=== PATIENT | male | born 1965 | race Caucasian/White ===

== ENCOUNTER 2018-09-01 14:16 | Emergency (ER) | payer SELFPAY ==
[2018-09-01] MEDS ORDERED: CLINDAMYCIN 600 MG/D5W RTU 600 MG/50 ML RTUPB IV ONE (17:26)
--- NOTE | 2018-09-01 17:29 | ER Document Report ---
ED Medical Screen (RME) - General Chief Complaint: Skin Problem Stated Complaint: INSECT BITE Time Seen by Provider: 09/01/18 17:23 Primary Care Provider: CHANDRA OGDEN [Primary Care Provider] - Follow up as needed TRAVEL OUTSIDE OF THE [place] IN LAST 30 DAYS: No - HPI Notes: 09/01/18 17:26 Patient is a 53-year-old male with no significant past medical history aside from MRSA years ago who presents complaining of abscess and infection to his left lower abdominal wall that is been present for the past 5 to 6 days, but worsened over the past 3 days. No obvious insect bite that he is aware of. Denies HERRING, fever, neck pain, URI, CP, SOB, n/v/d, dysuria, back pain. I have treated and performed a rapid initial assessment of this patient. A comprehensive ED assessment and evaluation of the patient, analysis of test results and completion of medical decision making process will be conducted by additional ED providers. PHYSICAL EXAMINATION: GENERAL: Well-appearing, well-nourished and in no acute distress. A&Ox4. Answers questions appropriately. Skin: + approx 5cm indurated area with fluctuance and purulence noted. + erythema/warmth that covers an approx 12 inches x 6 inches +/-. - Related Data Allergies/Adverse Reactions: No Known Allergies Allergy (Unverified 09/01/18 14:48) Physical Exam - Vital signs Vitals: Temp Pulse Resp BP Pulse Ox 98.7 F 88 16 160/91 H 98 09/01/18 16:11 09/01/18 16:11 09/01/18 16:11 09/01/18 16:11 09/01/18 16:11 Course - Vital Signs Vital signs: Temp Pulse Resp BP Pulse Ox 98.7 F 88 16 160/91 H 98 09/01/18 16:11 09/01/18 16:11 09/01/18 16:11 09/01/18 16:11 09/01/18 16:11 Doctor's Discharge - Discharge Referrals: CHANDRA OGDEN [Primary Care Provider] - Follow up as needed
[2018-09-01 18:18] LABS: ABSOLUTE BASOPHILS # (AUTO) 0.1 10^3/uL (0.0-0.2); ABSOLUTE EOSINOPHILS # (AUTO) 0.1 10^3/uL (0.0-0.6); ABSOLUTE LYMPHOCYTES (AUTO) 2.9 10^3/uL (0.5-4.7); ABSOLUTE MONOCYTES (AUTO) 1.1 10^3/uL (0.1-1.4); ABSOLUTE NEUT (AUTO) 9.1 10^3/uL (1.7-8.2); BASOPHILS % (AUTO) 0.9 % (0-2); EOSINOPHILS % (AUTO) 1.1 % (0-6); HEMATOCRIT 48.3 % (37.9-51.0); HEMOGLOBIN 16.2 g/dL (13.5-17.0); LYMPHOCYTES % (AUTO) 21.9 % (13-45); MEAN CORPUSCULAR HEMOGLOBIN 29.8 pg (27.0-33.4); MEAN CORPUSCULAR HGB CONC 33.6 g/dL (32.0-36.0); MEAN CORPUSCULAR VOLUME 89 fl (80-97); PLATELET COUNT 315 10^3/uL (150-450); RED BLOOD COUNT 5.44 10^6/uL (4.35-5.55); RED CELL DISTRIBUTION WIDTH 13.3 % (11.5-14.0); SEGMENTED NEUTROPHILS % (AUTO) 68.1 % (42-78); TOTAL CELLS COUNTED % (AUTO) 100 %; WHITE BLOOD COUNT 13.4 10^3/uL (4.0-10.5)
[2018-09-01 18:33] LABS: ANION GAP 10 (5-19); BLOOD UREA NITROGEN 20 mg/dL (7-20); CALCIUM 10.2 mg/dL (8.4-10.2); CARBON DIOXIDE 29 mmol/L (22-30); CHLORIDE 99 mmol/L (98-107); GLUCOSE 99 mg/dL (75-110); SODIUM 137.5 mmol/L (137-145)
[2018-09-01 18:45] LABS: POTASSIUM 4.9 mmol/L (3.6-5.0)
[2018-09-01] MEDS ORDERED: HYDROCODONE/ACETAMINOPHEN 5-325 MG TABLET PO ONE (21:45)
[2018-09-01] MEDS ORDERED: LIDOCAINE 1%/EPINEPHRINE INJ 20 ML VIAL INJ ONE (21:45)
--- NOTE | 2018-09-01 21:47 | ER Document Report ---
ED General - General Chief Complaint: Skin Problem Stated Complaint: INSECT BITE Time Seen by Provider: 09/01/18 17:23 Primary Care Provider: [facility] [Provider Group] - Follow up in 3-5 days [facility] [Provider Group] - Follow up in 3-5 days Notes: Patient is a 53-year-old male who presents the emergency department with a chief complaint of redness to his left lower abdomen. He states that he noticed the redness on . He thought it was a heat bump, because he normally gets these in the summertime. He states that he has never had this before. He states that he is also had a fever for the past 2 days. The area is tender to touch. He has not been taking medications. He normally takes a baby aspirin every day, but denies any significant past medical history. TRAVEL OUTSIDE OF THE [place] IN LAST 30 DAYS: No - Related Data Allergies/Adverse Reactions: No Known Allergies Allergy (Unverified 09/01/18 14:48) Past Medical History - Social History Smoking Status: Never Smoker Frequency of alcohol use: None Drug Abuse: None Family History: Reviewed & Not Pertinent Patient has suicidal ideation: No Patient has homicidal ideation: No Renal/ Medical History: Denies: Hx Peritoneal Dialysis Musculoskeletal Medical History: Reports Hx Arthritis Past Surgical History: Reports: Hx Genitourinary Surgery - vesectomy, Hx Oral Surgery - wisdom teeth, Hx Orthopedic Surgery - L index finger Review of Systems - Review of Systems Notes: REVIEW OF SYSTEMS: CONSTITUTIONAL : See HPI EENT: Denies eye, ear, throat, or mouth pain, discharge, or symptoms. Denies nasal or sinus congestion. CARDIOVASCULAR: Denies chest pain. RESPIRATORY: Denies shortness of breath, cough, congestion, difficulty breathing, or wheezing. GASTROINTESTINAL: Denies nausea, vomiting, and diarrhea. Denies abdominal pain. Denies constipation. GENITOURINARY: Denies difficulty urinating, burning, blood in urine, urgency or frequency. MUSCULOSKELETAL: Denies neck and back pain. Denies joint pain or swelling. SKIN: See HPI HEMATOLOGIC : Denies easy bruising or bleeding. LYMPHATIC: Denies swollen, painful, enlarged glands. NEUROLOGICAL: Denies no numbness or tingling denies weakness. Denies headache. Denies altered mental status. Denies alteration in speech. PSYCHIATRIC: Denies stress, anxiety, alteration in sleep patterns, or depression. All other systems reviewed and negative. Physical Exam - Vital signs Vitals: Temp Pulse Resp BP Pulse Ox 98.7 F 88 16 160/91 H 98 09/01/18 16:11 09/01/18 16:11 09/01/18 16:11 09/01/18 16:11 09/01/18 16:11 - Notes Notes: PHYSICAL EXAMINATION: GENERAL: Appears well, healthy, well-nourished, no acute distress. HEAD: Normocephalic, atraumatic. EYES: PERRL, conjunctiva normal, all extraocular movements intact, sclera nonicteric ENT: Moist mucous membranes. NECK: Supple, no noticeable swelling, redness, rash. Normal range of motion. LUNGS: Equal breath sounds bilaterally and clear to auscultation. No wheezes rales or rhonchi. CARDIOVASCULAR: S1-S2, regular rate, regular rhythm. Radial pulses 2+, normal. ABDOMEN: Normoactive bowel sounds. Soft, nontender, no guarding, no rebound t enderness, and no masses palpated. EXTREMITIES: Normal strength and range of motion, no pitting or edema. No cyanosis. NEUROLOGICAL: Moves all extremities upon command. Strength 5/5 in all extrem ities. PSYCH: Normal mood, normal affect. SKIN: Warm, dry. Abscess noted to mid-left lower abdomen. Surrounding cellulitis noted. Normal skin turgor. Course - Re-evaluation Re-evalutation: 09/01/18 23:07 Patient's white blood cell count is mildly elevated at 13,000. BMP ordered in triage is unremarkable. I do not suspect sepsis at this time, as the patient is not tachycardic. He is nontoxic in appearance. I am unsure as to what had caused this. It is possibility that it could be an insect bite that got infected or folliculitis that turned into an abscess. Differential diagnosis includes but normal limited to: abscess, dermoid cyst, sebaceous cyst, furnucle, or others. Based on patient's physical exam and history, this is an abscess. It was drained in the ER. There is surrounding cellulitis. I do not believe the patient has underlying necrotizing fasciitis. Based on patient's physical exam and these factors, they will be treated with antibiotics. The cellulitis was outlined here in the emergency department. He was instructed to return if he sees spreading of the cellulitis. Follow-up precautions were given. Verbal discharge instructions were given to the patient. They verbalized understandi ng. They are stable for discharge. - Vital Signs Vital signs: Temp Pulse Resp BP Pulse Ox 97.9 F 81 16 136/84 H 96 09/01/18 23:14 09/01/18 23:14 09/01/18 23:14 09/01/18 23:14 09/01/18 23:14 - Laboratory Result Diagrams: 09/01/18 17:55 09/01/18 17:55 Laboratory results interpreted by me: 09/01/18 17:55 WBC 13.4 H Absolute Neutrophils 9.1 H Procedures - Incision and Drainage Left mid-lower abdomen Type: Simple, Multiple Anesthetic type: 1% Lidocaine w/epi mL's of anesthetic: 6 Blade size: 11 I&D procedure: Betadine prep applied, Shurclens applied, Sterile dressing applied Incision Method: Incision made by scalpel Amount/type of drainage: 3 mls/purulent and blood Discharge - Discharge Clinical Impression: Abscess, Cellulitis Condition: Stable Disposition: HOME, SELF-CARE Instructions: Abscess ([facility]), Cephalexin ([facility]), Post Incision and Drainage, Trimethoprim-Sulfa ([facility]) Additional Instructions: You were seen for an abscess that required drainage. Please clean this area with soap and water twice daily and apply a topical antibiotic. Dress the area after each cleaning. Please return if you develop fever while on ibuprofen and Tylenol, vomiting, the pain at the site worsens, you notice spreading redness from the area, or you have any other symptoms that are concerning to you. The rash is likely due to infection of your skin. You need to take the antibiotics as prescribed. Do not stop even if the rash goes away until you have completed all the antibiotics. The area of redness was traced out here in the emergency department with a marking pen. You need to return to emergency department if the redness spreads outside of this area by more than 2 cm in any direction. You should also return if you develop fevers with temperature greater than 101, persistent vomiting, worsening pain, or have any other symptoms that are concerning to you. Please take Tylenol 1000 mg and ibuprofen 600 mg every 6 hours for your pain. Please only take the [place] if you have extreme pain. Prescriptions: Cephalexin Monohydrate [Keflex 500 mg Capsule] 500 mg PO Q6H 7 Days #28 capsule Sulfamethoxazole/Trimethoprim [Bactrim Ds Tablet] 1 each PO BID 7 Days #14 tablet Referrals: [facility] [Provider Group] - Follow up in 3-5 days [facility] [Provider Group] - Follow up in 3-5 days
[2018-09-01] MEDS ORDERED: SULFAMETHOXAZOLE/TRIMETHOPRIM 800-160 MG TABLET PO ONE (23:08)
[2018-09-01] MEDS ORDERED: HYDROCODONE/ACETAMINOPHEN 5-325 MG (6 TAB/ER DISP) PO PRN (23:08)
[2018-09-01] MEDS ORDERED: CEPHALEXIN 500 MG CAPSULE PO ONE (23:08)
[2018-09-01 23:32] VITALS: BP 149/88
== END 2018-09-01 23:34 | disposition home or self-care (01) ==
LOC: ER 14:16
DX: L02.211 Cutaneous abscess of abdominal wall (principal); L03.311 Cellulitis of abdominal wall; R50.9 Fever, unspecified; Z79.82 Long term (current) use of aspirin; D72.829 Elevated white blood cell count, unspecified
CPT/HCPCS: 99282; 96365; 36415; 87040; 85025; 80048; 10061; J3490

== ENCOUNTER 2020-01-08 22:31 | Inpatient (IN) | payer SELFPAY ==
[2020-01-08 23:10] LABS: ABSOLUTE BASOPHILS # (AUTO) 0.1 10^3/uL (0.0-0.2); ABSOLUTE EOSINOPHILS # (AUTO) 0.2 10^3/uL (0.0-0.6); ABSOLUTE LYMPHOCYTES (AUTO) 2.7 10^3/uL (0.5-4.7); ABSOLUTE MONOCYTES (AUTO) 0.9 10^3/uL (0.1-1.4); ABSOLUTE NEUT (AUTO) 8.8 10^3/uL (1.7-8.2); BASOPHILS % (AUTO) 0.7 % (0-2); EOSINOPHILS % (AUTO) 1.5 % (0-6); HEMATOCRIT 36.7 % (37.9-51.0); HEMOGLOBIN 12.4 g/dL (13.5-17.0); LYMPHOCYTES % (AUTO) 21.1 % (13-45); MEAN CORPUSCULAR HGB CONC 33.8 g/dL (32.0-36.0); MEAN CORPUSCULAR VOLUME 89 fl (80-97); MONOCYTES % (AUTO) 6.9 % (3-13); RED BLOOD COUNT 4.15 10^6/uL (4.35-5.55); RED CELL DISTRIBUTION WIDTH 14.2 % (11.5-14.0); SEGMENTED NEUTROPHILS % (AUTO) 69.8 % (42-78); TOTAL CELLS COUNTED % (AUTO) 100 %; WHITE BLOOD COUNT 12.6 10^3/uL (4.0-10.5)
[2020-01-08 23:17] LABS: ALBUMIN 3.6 g/dL (3.5-5.0); ALKALINE PHOSPHATASE 61 U/L (38-126); ANION GAP 8 (5-19); ASPARTATE AMINO TRANSFERASE 34 U/L (17-59); BILIRUBIN,DIRECT 0.3 mg/dL (0.0-0.4); BILIRUBIN,TOTAL 0.6 mg/dL (0.2-1.3); BLOOD UREA NITROGEN 40 mg/dL (7-20); CARBON DIOXIDE 25 mmol/L (22-30); CHLORIDE 103 mmol/L (98-107); GLUCOSE 169 mg/dL (75-110); TOTAL PROTEIN 6.1 g/dL (6.3-8.2)
[2020-01-08 23:34] LABS: PLATELET COUNT 197 10^3/uL (150-450)
[2020-01-09] MEDS ORDERED: RINGERS SOLUTION,LACTATED 1,000 ML IV ONE (00:11)
[2020-01-09] MEDS ORDERED: PANTOPRAZOLE SODIUM 40 MG VIAL IV PRN ×2 (00:11→02:10)
[2020-01-09] MEDS ORDERED: PANTOPRAZOLE SODIUM 40 MG VIAL IV ONE ×2 (00:11→03:26)
[2020-01-09 00:51] LABS: INTERNATIONAL RATION (INR) 0.98; PARTIAL THROMBOPLASTIN TIME 21.5 SEC (23.5-35.8); PROTHROMBIN TIME 13.2 SEC (11.4-15.4)
[2020-01-09] MEDS ORDERED: RINGERS SOLUTION,LACTATED 1,000 ML IV PRN (01:51)
[2020-01-09 02:12] LABS: APPEARANCE,URINE CLEAR; BILIRUBIN,URINE NEGATIVE (NEGATIVE); COLOR,URINE STRAW; GLUCOSE, URINE NEGATIVE (NEGATIVE); KETONES,URINE NEGATIVE (NEGATIVE); LEUKOCYTE ESTERASE,URINE NEGATIVE (NEGATIVE); NITRITE,URINE NEGATIVE (NEGATIVE); PROTEIN,URINE NEGATIVE (NEGATIVE); URINE SPECIFIC GRAVITY 1.015; UROBILINOGEN,URINE NEGATIVE mg/dL (<2.0)
--- NOTE | 2020-01-09 02:39 | ER Document Report ---
ED General - General Chief Complaint: GI Bleeding Stated Complaint: TARRY STOOL/VOMITING Notes: 54-year-old male history of chronic intermittent low back. Have any years, GERD presents with "GI bleed". Patient says he had 4 episodes of black stools starting the morning of 01/08/2020 at approximately 10:30 AM. First stool was formed black stool than he had 3 loose black stools. Last episode was large- volume at that he had incontinence because of the amount of stool admits he immediately after felt extremely lightheaded like he was going to faint prompting him to activate EMS. By EMS his blood pressure was low and so he was given 1 unit of PRBCs and 1 L of LR prior to arrival. On arrival to ED patient had no continued hypovolemic symptoms and has had no additional episodes of melena since arrival. Patient reports having 2 episodes of coffee-ground emesis with EMS. Patient is former medic. Patient says that he takes Excedrin approximately 3 times a week for back pain but takes it at recommended doses and has not had any increase in his intake recently. Patient takes omeprazole intermittently for reflux symptoms but has not used for the past several weeks. Patient denies any abdominal pain, fever, syncope, chest pain, trauma, bleeding diatheses, anticoagulation, prior episodes, GI bleed history, prior GI surgeries, endoscopy/colonoscopy history, alcohol abuse, other drug use, unexplained weight loss. Says his father had "bad stomach." TRAVEL OUTSIDE OF THE [place] IN LAST 30 DAYS: No - Related Data Allergies/Adverse Reactions: No Known Allergies Allergy (Unverified 09/01/18 14:48) Past Medical History - General Information source: Patient - Social History Smoking Status: Current Every Day Smoker Family History: Reviewed & Not Pertinent Renal/ Medical History: Denies: Hx Peritoneal Dialysis Musculoskeletal Medical History: Reports Hx Arthritis Past Surgical History: Reports: Hx Genitourinary Surgery - vesectomy, Hx Oral Surgery - wisdom teeth, Hx Orthopedic Surgery - L index finger Review of Systems - Review of Systems Notes: REVIEW OF SYSTEMS: CONSTITUTIONAL : Denies fever, chills, or sweats. EENT: Denies recent cold/sinus symptoms, denies throat pain CARDIOVASCULAR: Denies chest pain, [place]UL RESPIRATORY: Denies cough, denies shortness of breath. GASTROINTESTINAL: Denies abdominal pain, +vomiting. GENITOURINARY: Denies difficulty urinating, painful urination. MUSCULOSKELETAL: Denies neck pain, back pain. SKIN: Denies rash or skin lesions. HEMATOLOGIC : Denies easy bruising or bleeding. LYMPHATIC: Denies swollen, enlarged glands. NEUROLOGICAL: Denies headache, denies change in gait. PSYCHIATRIC: Denies anxiety or stress or depression. Physical Exam - Vital signs Vitals: Resp 15 01/08/20 22:38 - Notes Notes: PHYSICAL EXAMINATION: GENERAL: Well-appearing, well-nourished middle-aged male sitting up in stretcher talkative and cheerful and in no acute distress. HEAD: Atraumatic, normocephalic. EYES: Pupils equal round and appropriate constriction, sclera anicteric, conjunctiva are normal. ENT: nares patent, moist mucous membranes. NECK: Normal range of motion, supple without lymphadenopathy LUNGS: Breath sounds clear to auscultation bilaterally and equal. No wheezes rales or rhonchi. HEART: Regular rate and rhythm without murmurs ABDOMEN: Soft, nontender, no guarding, no masses, no CVAT no caput medusae, no distention, over left upper quadrant patient says that that is where he noticed a mild discomfort when EMS palpated that area. Patient has copious black tarry stool on everywhere and around buttocks, nontender rectal exam, no significant blood or stool in rectal vault, guaiac positive EXTREMITIES: Normal range of motion, no pitting or edema. No cyanosis. NEUROLOGICAL: Awake, alert, conversing appropriately, moves all extremities spontaneously. PSYCH: Normal mood, normal affect. SKIN: Warm, Dry, normal turgor, no rashes or lesions noted. Course - Re-evaluation Re-evalutation: 01/09/20 02:39 Presentation consistent with upper GI bleed, likely from PUD possibly secondary to NSAIDs but more likely H. pylori. Patient hemodynamically stable in the ED, no additional episodes of bleeding in the ED. Was hypotensive and near syncopal prior to arrival likely secondary to sided volume loss which after equilibration and treated by EMS has remained asymptomatic in ED. discussed case with Dr. Murry who says that over the next 24 to 48 hours will perform upper and lower endoscopy and patient should be admitted to inpatient medicine. Discussed case with Dr. Dillon who has evaluated patient and accepted him to [facility]. Patient remains without any additional episodes of melena in ED, will continue to monitor pending transfer to [facility]. 01/09/20 02:41 - Vital Signs Vital signs: Temp Pulse Resp BP Pulse Ox 98.3 F 12 126/73 H 94 01/08/20 22:54 01/09/20 01:01 01/09/20 01:01 01/09/20 01:01 - Laboratory Result Diagrams: 01/08/20 22:43 01/08/20 22:43 Laboratory results interpreted by me: 01/08/20 01/08/20 01/09/20 22:43 22:43 00:32 WBC 12.6 H RBC 4.15 L Hgb 12.4 L Hct 36.7 L RDW 14.2 H Absolute Neuts (auto) 8.8 H APTT 21.5 L Sodium 135.7 L BUN 40 H Glucose 169 H Calcium 11.0 H ALT 57 H Total Protein 6.1 L Discharge - Discharge Clinical Impression: GI bleed Qualifiers: GI bleed type/associated pathology: unspecified gastrointestinal hemorrhage type Qualified Code(s): K92.2 - Gastrointestinal hemorrhage, unspecified Disposition: ADMITTED INPATIENT Admitting Provider: [facility] Admitted: [facility]
[2020-01-09] MEDS ORDERED: NORMAL SALINE 100 ML with PANTOPRAZOLE SODIUM 80 MG IV PRN ×2 (02:47)
--- NOTE | 2020-01-09 03:50 | PDOC H&P ---
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 Patient states that he had the first episode of dark tarry stool in the morning of 01/08/2020 around 10 AM and following that he had 3 more episodes. He states that the first episode was the well-formed dark tarry stool but the last one was large volume and it was watery in consistency. After his last episode he felt lightheaded and felt like he was going to pass out while he was taking a shower but did not lose consciousness. He also reports that he had one episode of coffee-ground vomiting. Following the episode of lightheadedness and vomiting he asked his to call EMS and was transferred here. He states that his blood pressure was 87/68 in the EMS and he was transfused with 1 unit of blood and he was also given 1 L bolus of IV fluid. He states that he takes ibuprofen and aspirin as needed for arthritis and back pain but denies taking any pill the past few days. He denies any yellowish discoloration of the eye, abdominal pain, fever, chills, palpitation. Patient was monitored at the ER for 6 hours and has not had any bowel movement. After consultation with surgery patient was admitted for further monitoring and early endoscopy in the morning. Past Medical History Musculoskeltal Medical History: Reports: Arthritis Past Surgical History Past Surgical History: Reports: Orthopedic Surgery - L index finger Social History Information Source: Patient Lives with: Family Smoking Status: Never Smoker Frequency of Alcohol Use: Occasional Drugs: None - Advance Directive Resuscitation Status: Full Code Family History Family History: Reviewed & Not Pertinent Parental Family History Reviewed: Yes Children Family History Reviewed: Yes Sibling(s) Family History Reviewed.: Yes Medication/Allergy Home Medications: Cephalexin Monohydrate [Keflex 500 mg Capsule] 500 mg PO Q6H 7 Days #28 capsule 09/01/18 Sulfamethoxazole/Trimethoprim [Bactrim Ds Tablet] 1 each PO BID 7 Days #14 tablet 09/01/18 Allergies/Adverse Reactions: No Known Allergies Allergy (Unverified 09/01/18 14:48) Review of Systems Constitutional: ABSENT: chills, fever(s), headache(s), weight gain, weight loss Eyes: ABSENT: visual disturbances Ears: ABSENT: hearing changes Nose, Mouth, and Throat: ABSENT: headache(s), mouth pain, sore throat Cardiovascular: ABSENT: chest pain, dyspnea on exertion, edema, orthropnea, palpitations Respiratory: ABSENT: cough, hemoptysis Gastrointestinal: PRESENT: as per HPI Genitourinary: ABSENT: dysuria, hematuria Musculoskeletal: ABSENT: joint swelling Integumentary: ABSENT: rash, wounds Neurological: ABSENT: abnormal gait, abnormal speech, confusion, dizziness, focal weakness, syncope Psychiatric: ABSENT: anxiety, depression, homidical ideation, suicidal ideation Endocrine: ABSENT: cold intolerance, heat intolerance, polydipsia, polyuria Hematologic/Lymphatic: ABSENT: easy bleeding, easy bruising Physical Exam Vital Signs: Temp Pulse Resp BP Pulse Ox 98.3 F 12 126/73 H 94 01/08/20 22:54 01/09/20 01:01 01/09/20 01:01 01/09/20 01:01 Intake & Output 01/07/20 01/08/20 01/09/20 06:59 06:59 06:59 Intake Total 1000 Balance 1000 Additional comments: GENERAL APPEARANCE: Well-developed, well-nourished, in no acute distress. HEENT: Normocephalic and atraumatic. No scleral icterus. Moist oral mucosa, pink conjunctiva NECK: Supple. No evidence of thyroid enlargement. No lymphadenopathy. No JVD CHEST: Symmetric. Nontender to palpation. LUNGS: Breath sounds are equal and clear bilaterally. No wheezes, rhonchi, or rales. HEART: Regular rate and rhythm with normal S1 and S2. No murmurs, gallops, or rubs. ABDOMEN: Soft, normoactive bowel sounds. No tenderness, guarding, or rigidity. No organomegaly appreciated. No CVA tenderness or flank mass. EXTREMITIES: No cyanosis, clubbing, or edema. MUSCULOSKELETAL: No deformity, atrophy or swelling noted PSYCHIATRIC: The patient is awake, alert, and oriented x3. Appropriate mood and affect. SKIN: Warm, dry, and well perfused. No lesions or rashes are noted. NEUROLOGIC: No focal sensory or motor deficits are noted. Results Laboratory Results: 01/08/20 22:43 01/08/20 22:43 01/08/20 01/08/20 01/08/20 22:43 22:43 22:43 WBC 12.6 H RBC 4.15 L Hgb 12.4 L Hct 36.7 L MCV 89 MCH 30.0 MCHC 33.8 RDW 14.2 H Plt Count 197 Seg Neutrophils % 69.8 Sodium 135.7 L Potassium 4.0 Chloride 103 Carbon Dioxide 25 Anion Gap 8 BUN 40 H Creatinine 0.69 Est GFR ( Amer) > 60 Glucose 169 H Calcium 11.0 H Total Bilirubin 0.6 AST 34 Alkaline Phosphatase 61 Total Protein 6.1 L Albumin 3.6 Lipase 89.7 Urine Color Urine Appearance Urine pH Ur Specific [place] Urine Protein Urine Glucose (UA) Urine Ketones Urine Blood Urine Nitrite Ur Leukocyte Esterase Urine WBC (Auto) Blood Type B POSITIVE Antibody Screen NEGATIVE 01/09/20 01:54 WBC RBC Hgb Hct MCV MCH MCHC RDW Plt Count Seg Neutrophils % Sodium Potassium Chloride Carbon Dioxide Anion Gap BUN Creatinine Est GFR ( Amer) Glucose Calcium Total Bilirubin AST Alkaline Phosphatase Total Protein Albumin Lipase Urine Color STRAW Urine Appearance CLEAR Urine pH 7.0 Ur Specific [place] 1.015 Urine Protein NEGATIVE Urine Glucose (UA) NEGATIVE Urine Ketones NEGATIVE Urine Blood NEGATIVE Urine Nitrite NEGATIVE Ur Leukocyte Esterase NEGATIVE Urine WBC (Auto) 0 Blood Type Antibody Screen Assessment and Plan - Diagnosis (1) Upper GI bleed Is this a current diagnosis for this admission?: Yes Plan: Patient presents with dark tarry stool and coffee-ground vomiting Received 1 unit of packed RBC during transfer to ER by EMS Currently he is hemodynamically stable H&H on presentation 12.4/36.7 Typed and crossmatched Will get 2 large bore IV access Started on IV Protonix Continue IV hydration with LR Kept n.p.o. Surgery has been consulted and planning to do endoscopy (2) Obesity (BMI 30.0-34.9) Is this a current diagnosis for this admission?: Yes Plan: BMI 34.5 Encouraged him on dietary changes and regular exercise (3) Back pain Qualifiers: Back pain location: low back pain Is this a current diagnosis for this admission?: Yes Plan: Patient reports of chronic low back pain Has no red flag signs Advised him to avoid any NSAIDs for now - Time Time Spent with patient: 35 or more minutes Total Critical Time (Minutes): 45 Medications reviewed and adjusted accordingly: Yes Anticipated Discharge Disposition: Home, Self Care Anticipated Discharge Timeframe: within 72 hours - Inpatient Certification Post Hospital Care: D/C or Transfer Summary
[2020-01-09] MEDS ORDERED: PEG 3350/NA SULF,BICARB,CL/KCL 4000 ML PO ONE ×2 (06:57→10:00)
[2020-01-09] MEDS ORDERED: DEXTROSE 50%-WATER 25 GM/50 ML DISP.SYRIN IV PRN ×2 (06:57)
[2020-01-09] MEDS ORDERED: DEXTROSE 40% GEL 15 GM TUBE PO PRN ×2 (06:57)
[2020-01-09] MEDS ORDERED: GLUCAGON,HUMAN RECOMB 1 MG INJ SUBCUT PRN (06:57)
--- NOTE | 2020-01-09 07:04 | PDOC CONSULTATION ---
Consultation Consult Date: 01/09/20 Attending physician:: JACE TRIMBLE Provider Consulted: AGUSTÍN LAM Consult reason:: Gastrointestinal bleed History of Present Illness Admission Date/PCP: 01/09/20 02:54 History of Present Illness: ARON FERRARA is a 54 year old male Presents to the emergency department complaining of 24-hour history of dark tarry stools, episode hematemesis, near syncopal episode, decreased p.o. intake. Patient had hypotension in the ER ground transport, and received 1 unit of packed cells and 1 L of saline. Patient seen in the emergency department where he is hemodynamically stable, 12.2, admitted to the service, with surgery consulting for further evaluation of GI bleed. Patient has history of GERD, peptic ulcer disease, but never had imaging or endoscopic studies. He reports having intermittent dark tarry stools over the last year. He denies family history of colorectal cancer. He has a stressful job, takes NSAIDs and aspirin regularly. Patient was admitted overnight, and is remained hemodynamically stable with no further hematemesis or stools. 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 Lives with: Family Smoking Status: Never Smoker Electronic Cigarette use?: No Frequency of Alcohol Use: Occasional Drugs: None - Advance Directive Resuscitation Status: Full Code Family History Family History: None, Reviewed & Not Pertinent Parental Family History Reviewed: No Children Family History Reviewed: No Sibling(s) Family History Reviewed.: No Medication/Allergy Home Medications: Cephalexin Monohydrate [Keflex 500 mg Capsule] 500 mg PO Q6H 7 Days #28 capsule 09/01/18 Sulfamethoxazole/Trimethoprim [Bactrim Ds Tablet] 1 each PO BID 7 Days #14 tablet 09/01/18 Allergies/Adverse Reactions: No Known Allergies Allergy (Unverified 09/01/18 14:48) Review of Systems Constitutional: PRESENT: as per HPI Eyes: ABSENT: visual disturbances Ears: ABSENT: hearing changes Cardiovascular: ABSENT: chest pain, dyspnea on exertion, edema, orthropnea, palpitations Gastrointestinal: PRESENT: other - Melanotic stools over the last year; self diagnosed GERD, ulcer disease, self medicated with proton pump inhibitor Musculoskeletal: PRESENT: back pain Neurological: ABSENT: abnormal gait, abnormal speech, confusion, dizziness, focal weakness, syncope Psychiatric: ABSENT: anxiety, depression, homidical ideation, suicidal ideation Endocrine: ABSENT: cold intolerance, heat intolerance, polydipsia, polyuria Physical Exam Vital Signs: Temp Pulse Resp BP Pulse Ox 97.6 F 70 16 122/81 64 L 01/09/20 04:45 01/09/20 04:54 01/09/20 04:45 01/09/20 04:45 01/09/20 04:45 Intake & Output 01/07/20 01/08/20 01/09/20 06:59 06:59 06:59 Intake Total 1123 Output Total 600 Balance 523 Weight 95.8 kg General appearance: PRESENT: no acute distress Head exam: PRESENT: normocephalic Eye exam: PRESENT: EOMI Mouth exam: PRESENT: dry mucosa Neck exam: PRESENT: full ROM Respiratory exam: PRESENT: clear to auscultation jaime Cardiovascular exam: PRESENT: RRR Pulses: PRESENT: normal carotid pulses, normal radial pulses, normal femoral pulses, normal dorsalis pedis pul GI/Abdominal exam: PRESENT: soft, other - No peritoneal signs no rigidity Rectal exam: PRESENT: deferred Extremities exam: PRESENT: full ROM Musculoskeletal exam: PRESENT: full ROM Neurological exam: PRESENT: oriented to person, oriented to place, oriented to time, oriented to situation Focused psych exam: PRESENT: other - Appropriate Skin exam: PRESENT: dry Results Laboratory Results: 01/08/20 22:43 01/08/20 22:43 01/08/20 01/08/20 01/08/20 22:43 22:43 22:43 WBC 12.6 H RBC 4.15 L Hgb 12.4 L Hct 36.7 L MCV 89 MCH 30.0 MCHC 33.8 RDW 14.2 H Plt Count 197 Seg Neutrophils % 69.8 Sodium 135.7 L Potassium 4.0 Chloride 103 Carbon Dioxide 25 Anion Gap 8 BUN 40 H Creatinine 0.69 Est GFR ( Amer) > 60 Glucose 169 H Calcium 11.0 H Total Bilirubin 0.6 AST 34 Alkaline Phosphatase 61 Total Protein 6.1 L Albumin 3.6 Lipase 89.7 Urine Color Urine Appearance Urine pH Ur Specific [place] Urine Protein Urine Glucose (UA) Urine Ketones Urine Blood Urine Nitrite Ur Leukocyte Esterase Urine WBC (Auto) Blood Type B POSITIVE Antibody Screen NEGATIVE 01/09/20 01:54 WBC RBC Hgb Hct MCV MCH MCHC RDW Plt Count Seg Neutrophils % Sodium Potassium Chloride Carbon Dioxide Anion Gap BUN Creatinine Est GFR ( Amer) Glucose Calcium Total Bilirubin AST Alkaline Phosphatase Total Protein Albumin Lipase Urine Color STRAW Urine Appearance CLEAR Urine pH 7.0 Ur Specific [place] 1.015 Urine Protein NEGATIVE Urine Glucose (UA) NEGATIVE Urine Ketones NEGATIVE Urine Blood NEGATIVE Urine Nitrite NEGATIVE Ur Leukocyte Esterase NEGATIVE Urine WBC (Auto) 0 Blood Type Antibody Screen Assessment & Plan - Diagnosis (1) GI bleed Qualifiers: GI bleed type/associated pathology: unspecified gastrointestinal hemorrhage type Qualified Code(s): K92.2 - Gastrointestinal hemorrhage, unspecified Is this a current diagnosis for this admission?: Yes Plan: Pression: Acute GI bleed in patient with history of melanotic stools, self diagnosed ulcer disease, on aspirin and NSAIDs; status post 1 unit transfusion, hemodynamically stable. Recommendations: 1. Clear liquids today, then n.p.o. after midnight; start bowel prep 2. Plan for upper and lower endoscopy tomorrow, by Dr. Stanton, under LMAC anesthesia 3. We will obtain rapid Covid test today 4. I reviewed the above with the patient who expresses understanding and agrees to proceed. (2) Back pain Qualifiers: Back pain location: low back pain Is this a current diagnosis for this admission?: Yes (3) Obesity (BMI 30.0-34.9) Is this a current diagnosis for this admission?: Yes - Time Time Spent: 30 to 50 Minutes Smoking Cessation Education: 3 to 10 minutes Medications reviewed and adjusted accordingly: Yes Anticipated discharge: Home - Inpatient Certification Based on my medical assessment, after consideration of the patient's c omorbidities, presenting symptoms, or acuity I expect that the services needed warrant INPATIENT care.: Yes I certify that my determination is in accordance with my understanding of Medicare's requirements for reasonable and necessary INPATIENT services [42 CFR 412.3e].: Yes Medical Necessity: Need For IV Fluids, Need for Pain Control, Need for IV Antibiotics, Need for Surgery
[2020-01-09 07:23] LABS: HEMATOCRIT 34.6 % (37.9-51.0); HEMOGLOBIN 12.3 g/dL (13.5-17.0); MEAN CORPUSCULAR HEMOGLOBIN 30.8 pg (27.0-33.4); MEAN CORPUSCULAR HGB CONC 35.5 g/dL (32.0-36.0); MEAN CORPUSCULAR VOLUME 87 fl (80-97); PLATELET COUNT 241 10^3/uL (150-450); RED BLOOD COUNT 3.99 10^6/uL (4.35-5.55); RED CELL DISTRIBUTION WIDTH 14.4 % (11.5-14.0); WHITE BLOOD COUNT 9.2 10^3/uL (4.0-10.5)
[2020-01-09 07:40] LABS: ANION GAP 9 (5-19); BLOOD UREA NITROGEN 29 mg/dL (7-20); CALCIUM 9.4 mg/dL (8.4-10.2); CARBON DIOXIDE 24 mmol/L (22-30); CHLORIDE 106 mmol/L (98-107); GLUCOSE 93 mg/dL (75-110); POTASSIUM 4.1 mmol/L (3.6-5.0)
[2020-01-09] MEDS ORDERED: ONDANSETRON HCL INJ/PF 4 MG/2 ML SDV IV PRN (11:07)
[2020-01-09] MEDS: RINGERS SOLUTION,LACTATED 1,000 ML IV PRN ×2 (11:24→18:48)
[2020-01-09] MEDS: SUCRALFATE 1 GM TABLET PO SCH ×2 (11:37→17:22)
[2020-01-09] MEDS: ACETAMINOPHEN 325 MG TABLET PO PRN ×2 (11:37→20:29)
[2020-01-09] MEDS: PANTOPRAZOLE SODIUM 40 MG VIAL IV SCH ×2 (11:37→22:19)
--- NOTE | 2020-01-09 12:04 | Progress Note ---
Provider Note Provider Note: Patient seen and assessed today by me. He is doing well. Has not had any recurrence of his coffee-ground emesis. Endorses heavy use of ibuprofen. Plan is for endoscopy tomorrow. Clear liquids today and n.p.o. past midnight. Protonix IV twice daily and Carafate.
[2020-01-09 12:22] LABS: HEMATOCRIT 34.2 % (37.9-51.0); HEMOGLOBIN 12.3 g/dL (13.5-17.0); MEAN CORPUSCULAR HEMOGLOBIN 31.1 pg (27.0-33.4); MEAN CORPUSCULAR VOLUME 86 fl (80-97); PLATELET COUNT 238 10^3/uL (150-450); RED BLOOD COUNT 3.97 10^6/uL (4.35-5.55); RED CELL DISTRIBUTION WIDTH 14.1 % (11.5-14.0); WHITE BLOOD COUNT 8.6 10^3/uL (4.0-10.5)
[2020-01-09 19:03] LABS: HEMATOCRIT 32.6 % (37.9-51.0); HEMOGLOBIN 11.4 g/dL (13.5-17.0); MEAN CORPUSCULAR HEMOGLOBIN 30.6 pg (27.0-33.4); MEAN CORPUSCULAR HGB CONC 34.9 g/dL (32.0-36.0); MEAN CORPUSCULAR VOLUME 88 fl (80-97); PLATELET COUNT 233 10^3/uL (150-450); RED BLOOD COUNT 3.71 10^6/uL (4.35-5.55); RED CELL DISTRIBUTION WIDTH 14.1 % (11.5-14.0); WHITE BLOOD COUNT 10.6 10^3/uL (4.0-10.5)
[2020-01-10] MEDS: SUCRALFATE 1 GM TABLET PO SCH ×3 (00:28→12:48)
[2020-01-10] MEDS: RINGERS SOLUTION,LACTATED 1,000 ML IV PRN (03:37)
[2020-01-10] MEDS: ACETAMINOPHEN 325 MG TABLET PO PRN (06:33)
[2020-01-10 06:42] LABS: HEMATOCRIT 33.6 % (37.9-51.0); HEMOGLOBIN 11.5 g/dL (13.5-17.0); MEAN CORPUSCULAR HEMOGLOBIN 30.1 pg (27.0-33.4); MEAN CORPUSCULAR HGB CONC 34.4 g/dL (32.0-36.0); MEAN CORPUSCULAR VOLUME 88 fl (80-97); PLATELET COUNT 220 10^3/uL (150-450); RED BLOOD COUNT 3.83 10^6/uL (4.35-5.55); RED CELL DISTRIBUTION WIDTH 14.1 % (11.5-14.0); WHITE BLOOD COUNT 6.5 10^3/uL (4.0-10.5)
[2020-01-10 07:14] LABS: ANION GAP 7 (5-19); BLOOD UREA NITROGEN 13 mg/dL (7-20); CALCIUM 9.3 mg/dL (8.4-10.2); CARBON DIOXIDE 28 mmol/L (22-30); CHLORIDE 104 mmol/L (98-107); GLUCOSE 96 mg/dL (75-110); POTASSIUM 4.3 mmol/L (3.6-5.0)
[2020-01-10] MEDS ORDERED: MIDAZOLAM 2 MG/2 ML INJ ONE (07:43)
[2020-01-10] MEDS ORDERED: PROPOFOL INJ 200 MG/20 ML VIAL IV ONE (07:44)
[2020-01-10] MEDS ORDERED: INFLUENZA QUAD (6MOS+) 2020-21 VAC 0.5 ML SYR IM ONE (08:00)
[2020-01-10] MEDS ORDERED: GLUCAGON,HUMAN RECOMB 1 MG INJ ONE (08:01)
[2020-01-10] MEDS ORDERED: EPINEPHRINE INJ 1 MG/10 ML DISP.SYRIN ONE (08:01)
--- NOTE | 2020-01-10 08:56 | PDOC PROGRESS REPORT ---
Subjective Progress Note for:: 01/10/20 Subjective:: 54-year-old male with upper GI bleeding and melena. He reports that his colonoscopy prep was successful. He denies any further bleeding. Reason For Visit: UPPER GI BLEED Physical Exam Vital Signs: Temp Pulse Resp BP Pulse Ox 97.4 F 64 18 160/90 H 97 01/10/20 07:39 01/10/20 07:39 01/10/20 07:39 01/10/20 07:39 01/10/20 07:39 Intake & Output 01/09/20 01/10/20 01/11/20 06:59 06:59 06:59 Intake Total 1123 4010 Output Total 600 1175 Balance 523 2835 Weight 95.8 kg 97.9 kg General appearance: PRESENT: no acute distress, cooperative Head exam: PRESENT: atraumatic, normocephalic Eye exam: PRESENT: EOMI, PERRLA. ABSENT: scleral icterus Neck exam: ABSENT: meningismus, tenderness, thyromegaly, tracheal deviation Respiratory exam: PRESENT: unlabored. ABSENT: tachypnea, wheezes Cardiovascular exam: ABSENT: tachycardia GI/Abdominal exam: PRESENT: soft. ABSENT: rigid, tenderness Rectal exam: PRESENT: deferred Extremities exam: ABSENT: clubbing Musculoskeletal exam: ABSENT: deformity Neurological exam: PRESENT: alert, awake, oriented to person, oriented to place Psychiatric exam: ABSENT: agitated, anxious, depressed Focused psych exam: ABSENT: delusional Skin exam: ABSENT: cyanosis, erythema, jaundice Results Laboratory Results: 01/10/20 06:20 01/10/20 06:20 01/09/20 01/09/20 01/10/20 12:02 17:56 06:20 WBC 8.6 10.6 H RBC 3.97 L 3.71 L Hgb 12.3 L 11.4 L Hct 34.2 L 32.6 L MCV 86 88 MCH 31.1 30.6 MCHC 36.0 34.9 RDW 14.1 H 14.1 H Plt Count 238 233 Sodium 139.1 Potassium 4.3 Chloride 104 Carbon Dioxide 28 Anion Gap 7 BUN 13 Creatinine 0.74 Est GFR ( Amer) > 60 Glucose 96 Calcium 9.3 01/10/20 06:20 WBC 6.5 RBC 3.83 L Hgb 11.5 L Hct 33.6 L MCV 88 MCH 30.1 MCHC 34.4 RDW 14.1 H Plt Count 220 Sodium Potassium Chloride Carbon Dioxide Anion Gap BUN Creatinine Est GFR ( Amer) Glucose Calcium Assessment & Plan - Diagnosis (1) GI bleed Qualifiers: GI bleed type/associated pathology: unspecified gastrointestinal hemorrhage type Qualified Code(s): K92.2 - Gastrointestinal hemorrhage, unspecified - Time Anticipated Discharge Disposition: Home, Self Care Anticipated Discharge Timeframe: within 48 hours - Plan Summary Plan Summary: 54-year-old male with an episode of hematemesis and melena. Plan for EGD and colonoscopy today to rule out GI malignancy. Risk/benefits discussed, informed consent obtained, and all questions answered.
[2020-01-10] MEDS ORDERED: PROMETHAZINE HCL INJ 25 MG/1 ML VIAL IV PRN ×2 (09:58)
[2020-01-10] MEDS ORDERED: DIPHENHYDRAMINE HCL 50 MG/ML VIAL IV PRN (09:58)
[2020-01-10] MEDS ORDERED: MEPERIDINE HCL/PF INJ 25 MG/1 ML DISP.SYRIN IV PRN (09:58)
[2020-01-10 12:37] VITALS: BP 150/83
--- NOTE | 2020-01-10 13:09 | Operative Report ---
Nonrecallable Operative Report DATE OF SURGERY: 01/10/20 PREOPERATIVE DIAGNOSIS: hematemesis and melena POSTOPERATIVE DIAGNOSIS: 1. Shallow gastric ulcer. 2. Hiatal hernia. 3. Mild reflux esophagitis. 4. Normal colonoscopy OPERATION: 1. EGD with biopsy. 2. Colonoscopy to the cecum. SURGEON: GETACHEW MADDEN ANESTHESIA: LMAC TISSUE REMOVED OR ALTERED: 1. Antral biopsy. 2. Distal esophagus COMPLICATIONS: None apparent ESTIMATED BLOOD LOSS: Minimal PROCEDURE: Procedure in detail: After informed consent was obtained, the patient was brought into the operating room and laid in the left lateral decubitus position. The endoscope was placed into the oropharynx, passed down the esophagus, and into the stomach. The stomach was insufflated with air. There was noted to be no active bleeding or old blood within the stomach. The scope was pushed through the pylorus, and into the first and second portions of the duodenum. The duodenum appeared normal. The scope was withdrawn back into the gastric body. There were several small, shallow ulcerations in the antrum, consistent with gastritis. Biopsy was taken at the margin of one of the ulcerations. Retroflexion maneuver was then performed, noting a moderate sized hiatal hernia. The scope was withdrawn into the hiatal hernia, and reflux esophagitis was identified. Biopsy was taken from within the distal esophagus, to rule out metaplasia. The scope was then withdrawn up the remainder of the esophagus. The remainder of the esophagus was smooth in contour without masses, lesions, or other abnormalities. The scope was removed from the oropharynx, and this portion of the procedure was concluded. Attention was then turned to the colonoscopy. The scope was inserted into the rectum. It was passed up the rectum, sigmoid colon, descending colon, across the transverse colon, down the ascending colon, and into the cecum. The ileocecal valve and appendiceal orifice were identified. The scope was then withdrawn, circumferentially noting the mucosa. The prep was fair. The scope was withdrawn past the ascending colon, transverse colon, down the descending colon, sigmoid colon, and into the rectum. A few small, scattered diverticula were noted. There was no evidence of new blood, old blood, ulceration, polyp, tumor, cancer, or other significant abnormality. Once this was confirmed, the scope was removed, and the procedure was concluded. All sponge, instrument, and needle counts were correct x2. Condition: Stable.
--- NOTE | 2020-01-10 13:11 | Progress Note ---
Provider Note Provider Note: Patient is status post EGD and colonoscopy. The only abnormality identified were shallow gastric ulcerations. This is consistent with gastritis. This is likely the cause of his hematemesis. There was no active bleeding identified on EGD. Recommend initiation of a PPI, and follow-up with [facility] in 1 to 2 weeks. Surgery will sign off at this time.
--- NOTE | 2020-01-10 15:22 | PDOC DISCHARGE SUMMARY ---
Impression - Admit/DC Date/PCP Admission Date/Primary Care Provider: 01/09/20 02:54 Discharge Date: 01/10/20 - Discharge Diagnosis (1) Gastric ulcer Is this a current diagnosis for this admission?: Yes (2) Gastritis determined by endoscopy Is this a current diagnosis for this admission?: Yes (3) Back pain Is this a current diagnosis for this admission?: Yes (4) Obesity (BMI 30.0-34.9) Is this a current diagnosis for this admission?: Yes (5) Upper GI bleed Is this a current diagnosis for this admission?: Yes - Additional Information Resuscitation Status: Full Code Discharge Diet: Other (Comments) - Avoid caffine, acidic and spicy foods. Discharge Activity: Activity As Tolerated Referrals: [facility], [place] [Other] Prescriptions: Sucralfate [Carafate 1 gm Tablet] 1 gm PO Q6 #30 tablet Pantoprazole Sodium [Protonix [address] Tablet] 40 mg PO BID@0600,1700 #30 tablet. Home Medications: Pantoprazole Sodium [Protonix [address] Tablet] 40 mg PO BID@0600,1700 #30 tablet. 01/10/20 Sucralfate [Carafate 1 gm Tablet] 1 gm PO Q6 #30 tablet 01/10/20 History of Present Illiness History of Present Illness: As per admitting HPI as documented by Dr. 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 Patient states that he had the first episode of dark tarry stool in the morning of 01/08/2020 around 10 AM and following that he had 3 more episodes. He states that the first episode was the well-formed dark tarry stool but the last one was large volume and it was watery in consistency. After his last episode he felt lightheaded and felt like he was going to pass out while he was taking a shower but did not lose consciousness. He also reports that he had one episode of coffee-ground vomiting. Following the episode of lightheadedness and vomiting he asked his to call EMS and was transferred here. He states that his blood pressure was 87/68 in the EMS and he was transfused with 1 unit of blood and he was also given 1 L bolus of IV fluid. He states that he takes ibuprofen and aspirin as needed for arthritis a nd back pain but denies taking any pill the past few days. He denies any yellowish discoloration of the eye, abdominal pain, fever, chills, palpitation. Patient was monitored at the ER for 6 hours and has not had any bowel movement. After consultation with surgery patient was admitted for further monitoring and early endoscopy in the morning." Hospital Course Hospital Course: Mr. Oni Ferrara is a 54 alba old male with history of chronic NSAID use who was treated for lumbar GI bleed [place] to gastric ulcer. Presented on 01/08/2020 via EMS with concerns regarding multiple episodes of black tarry stools and single episode of coffee-ground emesis. He recieved 1unit PRBCs by EMS prior to arrival to hospital. H&H stable on presentation and remained stable entire course. Started on IV protonix, carafate and IVF. Surgery was consulted. EGD and colonoscopy performed. Normal colonoscopy. Multiple small shallow gastric ulcers, gastritis, hiatal hernia, and reflux esophagitis noted on EGD. Gastric ulcer and distal esophageal biopsies obtained. He is to follow up with [facility] [place] [facility] in 1-2 weeks for results. He was started on Protonix 40mg BID and Carafate 1gm q6hrs. He is to avoid further NSAID use. Can utilize Tylenol for back pain relief. Pt is stable for discharge and happy to be going home. Physical Exam Vital Signs: Temp Pulse Resp BP Pulse Ox 98.1 F 78 18 150/83 H 99 01/10/20 13:47 01/10/20 14:00 01/10/20 13:47 01/10/20 13:47 01/10/20 13:47 Intake & Output 01/09/20 01/10/20 01/11/20 06:59 06:59 06:59 Intake Total 1123 4010 1070 Output Total 600 1175 Balance 523 2835 1070 Weight 95.8 kg 97.9 kg General appearance: PRESENT: no acute distress, cooperative, obese Head exam: PRESENT: atraumatic, normocephalic Eye exam: ABSENT: scleral icterus Mouth exam: PRESENT: moist, tongue midline Neck exam: PRESENT: full ROM. ABSENT: tenderness Respiratory exam: PRESENT: symmetrical, unlabored. ABSENT: tachypnea Cardiovascular exam: PRESENT: RRR, +S1, +S2. ABSENT: diastolic murmur, systolic murmur, tachycardia Pulses: PRESENT: normal radial pulses GI/Abdominal exam: PRESENT: normal bowel sounds, soft. ABSENT: tenderness Extremities exam: PRESENT: full ROM. ABSENT: pedal edema, tenderness Musculoskeletal exam: PRESENT: ambulatory. ABSENT: deformity, dislocation, full ROM Neurological exam: PRESENT: alert, awake, oriented to person, oriented to place, oriented to time, oriented to situation, CN II-XII grossly intact. ABSENT: altered Psychiatric exam: PRESENT: appropriate affect, normal mood Skin exam: PRESENT: dry, intact, warm Results Laboratory Results: WBC 6.5 10^3/uL (4.0-10.5) 01/10/20 06:20 RBC 3.83 10^6/uL (4.35-5.55) L 01/10/20 06:20 Hgb 11.5 g/dL (13.5-17.0) L 01/10/20 06:20 Hct 33.6 % (37.9-51.0) L 01/10/20 06:20 MCV 88 fl (80-97) 01/10/20 06:20 MCH 30.1 pg (27.0-33.4) 01/10/20 06:20 MCHC 34.4 g/dL (32.0-36.0) 01/10/20 06:20 RDW 14.1 % (11.5-14.0) H 01/10/20 06:20 Plt Count 220 10^3/uL (150-450) 01/10/20 06:20 Lymph % (Auto) 21.1 % (13-45) 01/08/20 22:43 [place] % (Auto) 6.9 % (3-13) 01/08/20 22:43 Eos % (Auto) 1.5 % (0-6) 01/08/20 22:43 Baso % (Auto) 0.7 % (0-2) 01/08/20 22:43 Absolute Neuts (auto) 8.8 10^3/uL (1.7-8.2) H 01/08/20 22:43 Absolute Lymphs (auto) 2.7 10^3/uL (0.5-4.7) 01/08/20 22:43 Absolute Monos (auto) 0.9 10^3/uL (0.1-1.4) 01/08/20 22:43 Absolute Eos (auto) 0.2 10^3/uL (0.0-0.6) 01/08/20 22:43 Absolute Basos (auto) 0.1 10^3/uL (0.0-0.2) 01/08/20 22:43 Seg Neutrophils % 69.8 % (42-78) 01/08/20 22:43 PT 13.2 SEC (11.4-15.4) 01/09/20 00:32 INR 0.98 01/09/20 00:32 INR (Anticoag Therapy) Cancelled 01/08/20 22:43 APTT 21.5 SEC (23.5-35.8) L 01/09/20 00:32 Sodium 139.1 mmol/L (137-145) 01/10/20 06:20 Potassium 4.3 mmol/L (3.6-5.0) 01/10/20 06:20 Chloride 104 mmol/L (98-107) 01/10/20 06:20 Carbon Dioxide 28 mmol/L (22-30) 01/10/20 06:20 Anion Gap 7 (5-19) 01/10/20 06:20 BUN 13 mg/dL (7-20) 01/10/20 06:20 Creatinine 0.74 mg/dL (0.52-1.25) 01/10/20 06:20 Est GFR ( Amer) > 60 (>60) 01/10/20 06:20 Est GFR (MDRD) Non-Af > 60 (>60) 01/10/20 06:20 Glucose 96 mg/dL (75-110) 01/10/20 06:20 POC Glucose 100 mg/dL (70-110) 01/10/20 06:33 Calcium 9.3 mg/dL (8.4-10.2) 01/10/20 06:20 Total Bilirubin 0.6 mg/dL (0.2-1.3) 01/08/20 22:43 Direct Bilirubin 0.3 mg/dL (0.0-0.4) 01/08/20 22:43 Neonat Total Bilirubin Not Reportable 10/23/20 22:43 Neonat Direct Bilirubin Not Reportable 01/08/20 22:43 Neonat Indirect Bili Not Reportable 01/08/20 22:43 AST 34 U/L (17-59) 01/08/20 22:43 ALT 57 U/L (<50) H 01/08/20 22:43 Alkaline Phosphatase 61 U/L (38-126) 01/08/20 22:43 Total Protein 6.1 g/dL (6.3-8.2) L 01/08/20 22:43 Albumin 3.6 g/dL (3.5-5.0) 01/08/20 22:43 Lipase 89.7 U/L (23-300) 01/08/20 22:43 Urine Color STRAW 01/09/20 01:54 Urine Appearance CLEAR 01/09/20 01:54 Urine pH 7.0 (5.0-9.0) 01/09/20 01:54 Ur Specific [place] 1.015 01/09/20 01:54 Urine Protein NEGATIVE mg/dL (NEGATIVE) 01/09/20 01:54 Urine Glucose (UA) NEGATIVE mg/dL (NEGATIVE) 01/09/20 01:54 Urine Ketones NEGATIVE mg/dL (NEGATIVE) 01/09/20 01:54 Urine Blood NEGATIVE (NEGATIVE) 01/09/20 01:54 Urine Nitrite NEGATIVE (NEGATIVE) 01/09/20 01:54 Urine Bilirubin NEGATIVE (NEGATIVE) 01/09/20 01:54 Urine Urobilinogen NEGATIVE mg/dL (<2.0) 01/09/20 01:54 Ur Leukocyte Esterase NEGATIVE (NEGATIVE) 01/09/20 01:54 Urine WBC (Auto) 0 /HPF 01/09/20 01:54 U Hyaline Cast (Auto) 4 /LPF 01/09/20 01:54 Urine Mucus (Auto) RARE /LPF 01/09/20 01:54 Urine Ascorbic Acid NEGATIVE (NEGATIVE) 01/09/20 01:54 POC Stool Occult Blood POSITIVE (NEGATIVE) 01/09/20 00:24 SARS-CoV-2 (PCR) NEGATIVE (NEGATIVE) 01/09/20 09:05 Blood Type B POSITIVE 01/08/20 22:43 Antibody Screen NEGATIVE 01/08/20 22:43 Plan Health Concerns: Gastric ulcer: Risk for H. Pylori. Plan of Treatment: Upper GI bleed / Gastric ulcer / Gastritis / Esophageal Reflux : Protonix 40mg BID. Carafate 1gm PO q6. Follow up with [facility] center 1-2 weeks for biopsy results. Goals: Decrease NSAID use. Control gastric ulcer sxs with tx plan as discussed above. Time Spent: Greater than 30 Minutes Stroke Is this a Stroke Patient?: No Acute Heart Failure Is this a Heart Failure Patient?: No
[2020-01-10] MEDS ORDERED: PANTOPRAZOLE SODIUM 40 MG TABLET.DR PO SCH (17:00)
== END 2020-01-10 15:20 | disposition home or self-care (01) | DRG 377 ==
LOC: ER 22:31 → EH 01-09 02:54 → 3S 01-09 04:40
PROVIDERS: ADMIT Student in an Organized Health Care Education/Training Program; ATTEND Physician Assistant
PROC: 0DJD8ZZ Inspection of Lower Intestinal Tract, Via Natural or Artificial Opening Endoscopic (ICD-10-PCS; 2020-01-10)
PROC: 3E02340 Introduction of Influenza Vaccine into Muscle, Percutaneous Approach (ICD-10-PCS; 2020-01-10)
PROC: 0DB38ZX Excision of Lower Esophagus, Via Natural or Artificial Opening Endoscopic, Diagnostic (ICD-10-PCS; principal; 2020-01-10 08:00)
PROC: 0DB78ZX Excision of Stomach, Pylorus, Via Natural or Artificial Opening Endoscopic, Diagnostic (ICD-10-PCS; 2020-01-10 08:00)
DX: K25.4 Chronic or unspecified gastric ulcer with hemorrhage (principal); K21.01 Gastro-esophageal reflux disease with esophagitis, with bleeding; T39.395A Adverse effect of other nonsteroidal anti-inflammatory drugs [NSAID], initial encounter; Y92.9 Unspecified place or not applicable; Z20.828 Contact with and (suspected) exposure to other viral communicable diseases; K29.71 Gastritis, unspecified, with bleeding; K44.9 Diaphragmatic hernia without obstruction or gangrene; Z68.34 Body mass index [BMI] 34.0-34.9, adult; F17.210 Nicotine dependence, cigarettes, uncomplicated; M54.5 Low back pain; E66.9 Obesity, unspecified; Z23 Encounter for immunization
CPT/HCPCS: 36415; 43239; 45380; 80048; 80053; 81001; 813; 82270; 82962; 83690; 85025; 85027; 85610; 85730; 86850; 86900; 86901; 87635; 88305; 88342; 90471; 90686; 96365; 96366; 96375; 99285; C9113; C9803; G0008; J0171; J1610; J2250; J2405; J2704; J3490; J7050; J7120

== ENCOUNTER → 2020-03-31 | Outpatient (CLI) | payer OTHER | LOC: CCC 14:34 | PROVIDERS: ATTEND Family Medicine | DX: N52.9 Male erectile dysfunction, unspecified (principal) | CPT/HCPCS: 36415; 84402 ==

== ENCOUNTER → 2020-04-06 | Outpatient (CLI) | payer OTHER ==
[2020-04-06 11:28] LABS: ABSOLUTE BASOPHILS # (AUTO) 0.1 10^3/uL (0.0-0.2); ABSOLUTE EOSINOPHILS # (AUTO) 0.3 10^3/uL (0.0-0.6); ABSOLUTE MONOCYTES (AUTO) 0.4 10^3/uL (0.1-1.4); ABSOLUTE NEUT (AUTO) 3.7 10^3/uL (1.7-8.2); EOSINOPHILS % (AUTO) 4.4 % (0-6); HEMATOCRIT 42.1 % (37.9-51.0); HEMOGLOBIN 13.8 g/dL (13.5-17.0); LYMPHOCYTES % (AUTO) 30.9 % (13-45); MEAN CORPUSCULAR HEMOGLOBIN 26.6 pg (27.0-33.4); MEAN CORPUSCULAR HGB CONC 32.8 g/dL (32.0-36.0); MEAN CORPUSCULAR VOLUME 81 fl (80-97); PLATELET COUNT 289 10^3/uL (150-450); RED BLOOD COUNT 5.19 10^6/uL (4.35-5.55); RED CELL DISTRIBUTION WIDTH 14.9 % (11.5-14.0); SEGMENTED NEUTROPHILS % (AUTO) 57.7 % (42-78); TOTAL CELLS COUNTED % (AUTO) 100 %; WHITE BLOOD COUNT 6.5 10^3/uL (4.0-10.5)
[2020-04-06 11:34] LABS: APPEARANCE,URINE CLEAR; BILIRUBIN,URINE NEGATIVE (NEGATIVE); COLOR,URINE STRAW; GLUCOSE, URINE NEGATIVE (NEGATIVE); KETONES,URINE NEGATIVE (NEGATIVE); LEUKOCYTE ESTERASE,URINE NEGATIVE (NEGATIVE); NITRITE,URINE NEGATIVE (NEGATIVE); PROTEIN,URINE NEGATIVE (NEGATIVE); URINE SPECIFIC GRAVITY 1.008; UROBILINOGEN,URINE NEGATIVE mg/dL (<2.0)
[2020-04-06 11:52] LABS: ALBUMIN 4.4 g/dL (3.5-5.0); ALKALINE PHOSPHATASE 119 U/L (38-126); ANION GAP 6 (5-19); ASPARTATE AMINO TRANSFERASE 56 U/L (17-59); BILIRUBIN,DIRECT 0.2 mg/dL (0.0-0.4); BILIRUBIN,TOTAL 0.4 mg/dL (0.2-1.3); BLOOD UREA NITROGEN 12 mg/dL (7-20); CALCIUM 9.2 mg/dL (8.4-10.2); CARBON DIOXIDE 27 mmol/L (22-30); CHLORIDE 104 mmol/L (98-107); CHOLESTEROL 252.39 mg/dL (0-200); GLUCOSE 101 mg/dL (75-110); POTASSIUM 4.8 mmol/L (3.6-5.0); TOTAL PROTEIN 7.6 g/dL (6.3-8.2); TRIGLYCERIDES 119 mg/dL (<150); URIC ACID 6.8 mg/dL (3.5-8.5)
[2020-04-06 12:03] LABS: DIRECT LDL 181 mg/dL (<100)
== END ==
LOC: CCC 09:25
PROVIDERS: ATTEND Family Medicine
DX: Z13.9 Encounter for screening, unspecified (principal)
CPT/HCPCS: 36415; 80053; 80061; 81001; 83036; 84153; 84402; 84403; 84443; 84550; 85025